=== PATIENT | female | born 1965 ===

== ENCOUNTER → 2021-01-18 08:33 | Outpatient (CLI) | payer OTHER, SELFPAY ==
[2021-01-18 19:44] LABS: Alanine Aminotransferase 19 IU/L (<35); Albumin 4.3 g/dL (3.5-5.0); Albumin Globulin Ratio 1.4 (1.0-2.8); Alkaline Phosphatase 88 U/L (38-126); Aspartate Aminotransferase 28 IU/L (14-36); BUN Creatinine Ratio 28.1 (6-22); Bilirubin Total 0.6 mg/dL (0.2-1.3); Blood Urea Nitrogen 16 mg/dL (7-17); Calcium 9.8 mg/dL (8.4-10.2); Carbon Dioxide 31 mmol/L (22-32); Chloride 104 mmol/L (98-107); Cholesterol 186 mg/dL (140-199); Estimated Glomerular Filt Rate > 60.0 mL/min (>60); Globulin 3.1 g/dL (1.7-4.1); Glucose 107 mg/dL (70-100); HDL Cholesterol 85 mg/dL (40-60); HEMOLYSIS < 15 (0-50); LDL Cholesterol Calculated 86 mg/dL (<100); Potassium 4.2 mmol/L (3.4-5.1); Sodium 140 mmol/L (137-145); Total Protein 7.4 g/dL (6.3-8.2); Triglycerides 74 mg/dL (35-150)
[2021-01-18 20:14] LABS: TSH w/ Reflex to FT4 6.85 uIU/mL (0.47-4.68)
[2021-01-18 20:42] LABS: Free T4, Direct Thyroxine 0.91 ng/dL (0.78-2.19)
== END ==
PROVIDERS: PCP Physician Assistant; Referring Provider Nurse Practitioner Family; Visit Provider Nurse Practitioner Family
DX: E03.9 Hypothyroidism, unspecified (principal); Z13.6 Encounter for screening for cardiovascular disorders; Z51.81 Encounter for therapeutic drug level monitoring
CPT/HCPCS: 80053; 80061; 84439; 84443

== ENCOUNTER → 2021-08-31 11:07 | Outpatient (CLI) | payer OTHER, SELFPAY ==
[2021-08-31 19:48] LABS: TSH w/ Reflex to FT4 6.16 uIU/mL (0.47-4.68)
[2021-08-31 20:24] LABS: Free T4, Direct Thyroxine 1.36 ng/dL (0.78-2.19)
== END ==
PROVIDERS: PCP Physician Assistant; Visit Provider Nurse Practitioner Family
DX: E03.8 Other specified hypothyroidism (principal)
CPT/HCPCS: 84439; 84443

== ENCOUNTER 2021-10-23 10:50 | Emergency (ER) | payer OTHER, SELFPAY ==
[2021-10-23 11:27] VITALS: BP 158/98; PULSE 104; RESP 16; TEMP 36.3; O2SAT 97; BMI 29.5
--- NOTE | 2021-10-23 11:32 | DI.RAD.S_ITS ---
PROCEDURE: XR RIBS LT MIN 3V W CXR1V INDICATIONS: fall, hit ribs on tub TECHNIQUE: 2 views of the left ribs were acquired, along with a single view chest. COMPARISON: None. FINDINGS: Surgical changes and devices: None. Bones and chest wall: A marker is placed upon the area of clinical concern. Within this region, no displaced rib fracture or other significant rib abnormality can be seen. No rib fractures are seen elsewhere. No suspicious bony lesions. Age-appropriate bony degenerative changes are seen. Overlying soft tissues appear unremarkable. Lungs and pleura: No pleural effusions or pneumothorax. Lungs appear clear. Mediastinum: Mediastinal contours appear normal. Heart size is normal. IMPRESSION: No displaced rib fracture or pneumothorax can be seen. Dictated by: Dustin Barney M.D. on 10/23/2021 at 11:08 Approved by: Dustin Barney M.D. on 10/23/2021 at 11:09
--- NOTE | 2021-10-23 12:35 | ED_ITS ---
HPI - Fall <Presley Pace PA-C - Last Filed: 10/23/21 20:32> General Chief Complaint: Fall Stated Complaint: fell last night thinks broke ribs Time Seen by Provider: 10/23/21 11:59 History of Present Illness HPI Narrative: Patient is a 56-year-old female who presents to the emergency department for an evaluation of left-sided rib pain. Patient explains that she experienced a mechanical fall last night in her bathroom, stating that she hit the left side of her ribs on her bathtub. She states that since that time she has been experiencing left-sided rib pain and shortness of breath due to the pain. Of note, patient denies hitting her head or losing consciousness as a result of the fall. Additionally, she denies pain or injury elsewhere. No fever, chills, chest pain, cough, nausea, vomiting, diarrhea, constipation, abdominal pain, dysuria, hematuria, hematochezia, hematemesis, or any other concerning symptoms reported. No further concerns were voiced at this time. Related Data Home Medications Medication Instructions Recorded Confirmed buprenorphine 8 mg-naloxone 2 mg 1 film buccal DAILY 10/07/20 10/07/20 sublingual film (Suboxone) levothyroxine 175 mcg capsule 175 mcg PO DAILY 10/07/20 10/07/20 Previous Rx's Medication Instructions Recorded mupirocin 2 % topical ointment 1 applic topical TID #22 grams 10/07/20 Allergies Allergy/AdvReac Type Severity Reaction Status Date / Time orphenadrine [From Norflex] Allergy Verified 10/07/20 16:14 Review of Systems <Presley Pace PA-C - Last Filed: 10/23/21 20:32> Constitutional Constitutional: Denies chills, Denies fatigue, Denies fever(s), Denies frequent falls, Denies lethargy and Denies weakness ENT Ears, Nose, Mouth, and Throat: Denies neck pain Cardiovascular Cardiovascular: Denies chest pain, Denies irregular heart rhythm, Denies lightheadedness, Denies palpitations, Reports dyspnea, Denies dyspnea on exertion and Denies orthopnea Respiratory Respiratory: Denies chest congestion, Denies cough, Reports dyspnea and Denies dyspnea on exertion Gastrointestinal Gastrointestinal: Denies abdominal pain, Denies change in bowel habits, Denies diarrhea, Denies nausea and Denies vomiting Genitourinary Genitourinary: Denies hematuria, Denies flank pain, Denies urinary incontinence and Denies urinary urgency Musculoskeletal Musculoskeletal: Denies back pain, Reports arthralgias (Left-sided rib pain), Denies muscle weakness, Denies neck pain, Denies numbness and Denies tingling Integumentary/Breasts Skin/Breast: Denies pruritus, Denies erythema, Denies rash and Denies wounds Neurologic Neurologic: Denies frequent falls, Denies numbness, Denies tingling and Denies weakness Endocrine Endocrine: Denies fatigue and Denies palpitations Patient History <Presley Pace PA-C - Last Filed: 10/23/21 20:32> Social History Smoking Status: Current every day smoker Smoking Status: Current every day smoker Exam <Presley Pace PA-C - Last Filed: 10/23/21 20:32> Narrative Exam Narrative: GENERAL: 56 year old patient appears stated age. Well-developed patient, in no acute distress. HEAD: Atraumatic. Normocephalic. EYES: Pupils equal round and reactive. Extraocular motions intact. No scleral icterus. No injection or drainage. ENT: Nose without bleeding, purulent drainage. Throat without erythema, tonsillar hypertrophy or exudate. Airway patent. NECK: Trachea midline. Non tender CARDIOVASCULAR: Regular rate and rhythm without murmurs, gallops, or rubs. RESPIRATORY: Clear to auscultation. Breath sounds equal bilaterally. No wheezes, rales, or rhonchi. GASTROINTESTINAL: Abdomen soft, non-tender, nondistended. EXTREMITIES: No edema or joint tenderness. Tenderness to palpation appreciated in the area of the left 5th and 6th ribs with no gross deformity appreciated or crepitance on palpation. No overlying ecchymosis or erythema noted. BACK: Nontender without deformity or crepitance. No flank tenderness. NEURO: AOx3. SKIN: No rash or erythema of visible areas Initial Vital Signs Initial Vital Signs: Vital Signs Temperature 97.4 F L 10/23/21 11:27 Pulse Rate 104 H 10/23/21 11:27 Respiratory Rate 16 10/23/21 11:27 Blood Pressure 158/98 H 10/23/21 11:27 Pulse Oximetry 97 10/23/21 11:27 Oxygen Delivery Method 10/23/21 11:27 <Apolonia Smith DO - Last Filed: 10/30/21 12:56> Initial Vital Signs Initial Vital Signs: Vital Signs Temperature 97.4 F L 10/23/21 11:27 Pulse Rate 104 H 10/23/21 11:27 Respiratory Rate 16 10/23/21 11:27 Blood Pressure 158/98 H 10/23/21 11:27 Pulse Oximetry 97 10/23/21 11:27 Oxygen Delivery Method 10/23/21 11:27 Course <Presley Pace PA-C - Last Filed: 10/23/21 20:32> Course Course Narrative: X-ray of ribs obtained. X-ray is within normal limits, no signs of fracture or dislocation. Orders Ordered: ED Orders 10/23/21 11:32 XR ribs LT min 3V w CXR1V Stat Vital Signs Vital signs: Vital Signs - 8 hr 10/23/21 12:51 Pulse Rate 80 Respiratory Rate 18 Blood Pressure 142/91 H Pulse Oximetry 98 Oxygen Delivery Method Room Air <Apolonia Smith DO - Last Filed: 10/30/21 12:56> Orders Ordered: ED Orders 10/23/21 11:32 XR ribs LT min 3V w CXR1V Stat Vital Signs Vital signs: Vital Signs - 8 hr 10/23/21 12:51 Pulse Rate 80 Respiratory Rate 18 Blood Pressure 142/91 H Pulse Oximetry 98 Oxygen Delivery Method Room Air MDM - Fall <TITO Tracy Last Filed: 10/23/21 20:32> Imaging Data Ribs x-ray: Radiologist's Impression: PROCEDURE:? XR RIBS LT MIN 3V W CXR1V ? INDICATIONS:? fall, hit ribs on tub ? TECHNIQUE:? 2 views of the left ribs were acquired, along with a single view chest.? ? COMPARISON:? None. ? FINDINGS:? ? Surgical changes and devices:? None.? ? Bones and chest wall:? A marker is placed upon the area of clinical concern.? Within this region, no displaced rib fracture or other significant rib abnormality can be seen.? No rib fractures are seen elsewhere.? No suspicious bony lesions.? Age-appropriate bony degenerative changes are seen.? Overlying soft tissues appear unremarkable.? ? Lungs and pleura:? No pleural effusions or pneumothorax.? Lungs appear clear.? ? Mediastinum:? Mediastinal contours appear normal.? Heart size is normal.? ? ? IMPRESSION:? ? No displaced rib fracture or pneumothorax can be seen. ? ? Dictated by: Dustin Barney M.D. on 10/23/2021 at 11:08 ? ? Approved by: Dustin Barney M.D. on 10/23/2021 at 11:09? Discharge Plan Departure Patient Disposition: Home Clinical Impression: Fall against object, Rib pain on left side Activity Restrictions/Additional Instructions: *You have been diagnosed with fall against objects, left-sided rib pain *What to do: *Please continue to take your regular medications as directed. [ ] New medication prescriptions sent to your pharmacy: [ ] [ ] New medication written as a paper prescription [X] No new medications given You were evaluated in the emergency department for left-sided rib pain following a fall. X-ray imaging obtained in the emergency department today did not show signs of acute abnormality such as fracture, dislocation, or collapsed lung. I recommend continuing to use [id number] medications and applying ice to the painful area as needed for pain management. Please follow-up with primary care within the next few days for further evaluation and management. Do not hesitate to return to the emergency department if you experience worsening pain, increasing shortness of breath, fever, or any other concerning symptoms. *Please follow up with your primary care provider in 2-3 days, call for an appointment. Let them know you were seen in the Emergency Department and that we ask that you be seen in follow up. We will electronically transmit a record of today's note if your PCP is in our system *If you do not have a primary care provider please contact the [facility] Resource line at [phone]. They will ask some questions about your medical history and help get you set up with a doctor in the community. *Return to Emergency Department if you should have any new, worsening or concerning symptoms, such as fever greater than 101 F, shaking chills, worsening pain, persistent vomiting or other bothersome symptoms. Prescriptions: No Action mupirocin 2 % ointment 1 applic topical TID Qty: 22 0RF levothyroxine 175 mcg capsule 175 mcg PO DAILY buprenorphine-naloxone [Suboxone] 8-2 mg film 1 film buccal DAILY Referrals: Natasha Diaz ARNP [Primary Care Provider] - Stand Alone Forms: Work Release Note Visit Report Forms: Patient Portal/API <Apolonia Smith DO - Last Filed: 10/30/21 12:56> Cosign ED Attending Cosignature Attestation: I was immediately available in the department for consultation. Documentation has been reviewed.
[2021-10-23 12:51] VITALS: BP 142/91; PULSE 80; RESP 18; O2SAT 98
== END 2021-10-23 12:53 | disposition home or self-care (01) ==
PROVIDERS: Emergency Provider Physician Assistant; PCP Nurse Practitioner Family
DX: R07.81 Pleurodynia (principal); W18.2XXA Fall in (into) shower or empty bathtub, initial encounter
CPT/HCPCS: 71101; 99281; 99283

== ENCOUNTER → 2023-05-08 09:25 | Outpatient (CLI) | payer OTHER, SELFPAY ==
[2023-05-08 19:22] LABS: Add Manual Diff / Slide Review NO; Basophils Absolute Auto 100 /uL (0-100); Basophils Percent Auto 1.4 % (0-2); Eosinophils Absolute Auto 100 /uL (0-450); Hematocrit 43.6 % (36-46); Hemoglobin 14.9 g/dL (12.0-16.0); Lymphocytes Absolute Auto 1300 /uL (1100-4500); Lymphocytes Percent Auto 22.1 % (25-40); Mean Corpuscular HGB Conc 34.2 % (30-36); Mean Corpuscular Hemoglobin 31.8 PG (26-34); Mean Corpuscular Volume 93.1 fL (80-100); Monocytes Absolute Auto 400 /uL (0-900); Monocytes Percent Auto 7.7 % (3-14); Neutrophils Absolute Auto 3900 /uL (1500-7000); Neutrophils Percent Auto 67.8 % (50-75); Platelet Count 258 X10^3/uL (150-400); Red Blood Cell Count 4.68 X10^6/uL (4.0-5.2); Red Cell Distribution Width 13.9 % (11.6-14.8); White Blood Cell Count 5.8 X10^3/uL (4.5-11.0)
[2023-05-08 19:29] LABS: Alanine Aminotransferase 41 IU/L (<35); Albumin 4.3 g/dL (3.5-5.0); Albumin Globulin Ratio 1.4 (1.0-2.8); Alkaline Phosphatase 79 U/L (38-126); Aspartate Aminotransferase 52 IU/L (14-36); BUN Creatinine Ratio 23.3 (6-22); Bilirubin Total 0.9 mg/dL (0.2-1.3); Blood Urea Nitrogen 17 mg/dL (7-17); Calcium 9.4 mg/dL (8.4-10.2); Carbon Dioxide 26 mmol/L (22-32); Chloride 98 mmol/L (98-107); Cholesterol 222 mg/dL (140-199); Estimated Glomerular Filt Rate > 60 mL/min (>60); Glucose 87 mg/dL (70-100); HDL Cholesterol 76 mg/dL (40-60); HEMOLYSIS 15 (0-50); LDL Cholesterol Calculated 127 mg/dL (<100); Sodium 132 mmol/L (137-145); Total Protein 7.3 g/dL (6.3-8.2); Triglycerides 96 mg/dL (35-150)
[2023-05-08 20:33] LABS: Free T4, Direct Thyroxine < 0.07 ng/dL (0.78-2.19)
== END ==
PROVIDERS: PCP Nurse Practitioner Family; Visit Provider Physician Assistant
DX: Z13.6 Encounter for screening for cardiovascular disorders (principal); I10 Essential (primary) hypertension; E03.9 Hypothyroidism, unspecified; Z79.899 Other long term (current) drug therapy
CPT/HCPCS: 80053; 80061; 84439; 84443; 85025

== ENCOUNTER → 2024-07-04 07:55 | Outpatient (CLI) | payer OTHER, SELFPAY ==
[2024-07-04 17:56] LABS: Alanine Aminotransferase 45 IU/L (<35); Albumin 4.9 g/dL (3.5-5.0); Albumin Globulin Ratio 1.6 (1.0-2.8); Alkaline Phosphatase 112 U/L (38-126); Aspartate Aminotransferase 65 IU/L (14-36); BUN Creatinine Ratio 16.3 (6-22); Bilirubin Total 0.9 mg/dL (0.2-1.3); Blood Urea Nitrogen 14 mg/dL (7-17); Calcium 9.7 mg/dL (8.4-10.2); Carbon Dioxide 27 mmol/L (22-32); Chloride 101 mmol/L (98-107); Cholesterol 232 mg/dL (140-199); Estimated Glomerular Filt Rate > 60 mL/min (>60); Glucose 121 mg/dL (70-100); HDL Cholesterol 75 mg/dL (40-60); HEMOLYSIS < 15 (0-50); LDL Cholesterol Calculated 144 mg/dL (<100); Potassium 3.6 mmol/L (3.4-5.1); Sodium 137 mmol/L (137-145); Total Protein 7.9 g/dL (6.3-8.2); Triglycerides 67 mg/dL (35-150)
[2024-07-04 18:12] LABS: Free T3, Triiodothyronine Free 3.19 pg/mL (2.77-5.27)
[2024-07-04 18:57] LABS: Free T4, Direct Thyroxine 0.66 ng/dL (0.78-2.19)
[2024-07-07 15:50] LABS: HIV 1 & 2 Ab/Ag 4th Gen Combo NEGATIVE (NEGATIVE); Hep C Virus Ab w/Reflex Quant NEGATIVE s/c (NEGATIVE)
== END ==
PROVIDERS: PCP Physician Assistant; Visit Provider Physician Assistant
DX: I10 Essential (primary) hypertension (principal); E03.9 Hypothyroidism, unspecified; E78.00 Pure hypercholesterolemia, unspecified; Z11.59 Encounter for screening for other viral diseases; R74.8 Abnormal levels of other serum enzymes; Z12.11 Encounter for screening for malignant neoplasm of colon; Z11.4 Encounter for screening for human immunodeficiency virus [HIV]
CPT/HCPCS: 80053; 80061; 84439; 84443; 84481; 86803; 87389